=== PATIENT | male | born 1965 | race Caucasian/White ===

== ENCOUNTER 2016-11-19 15:30 | Outpatient (RCR) | payer BC ==
[~2016-11-19 15:30] MED LIST: ASPIRIN E.C. 8181 MG PO; CO Q-1050 MG PO; FISH OIL1000 MG PO; MULTI VITAMINS1 TAB PO; NASACORT AQ N16.5 GM NS; PULMICORT180 MCG/A1 IH; SINGULAIR
== END 2016-12-11 08:25 | disposition home or self-care (01) ==
LOC: WSPT 15:30
DX: M25.561 Pain in right knee (principal)

== ENCOUNTER 2018-06-11 18:43 | Emergency (ER) | payer BC ==
[~2018-06-11] VITALS: Ht 180.3 cm; Wt 100.0 kg
[2018-06-11 18:50] VITALS: TEMP 96.8
[2018-06-11 19:26] LABS: BASO % 0.3 % (0.0-2.0); EOS # 0.1 (0.0-0.7); GRAN # 6.5 (1.4-6.5); GRAN % 61.8 % (42.2-75.2); HEMATOCRIT 41.8 % (42.0-52.0); HEMOGLOBIN 14.6 g/dl (13.5-18.0); LYMPH # 2.8 (1.2-3.4); LYMPH % 27.1 % (20.0-51.0); MEAN CELL VOLUME 90 fl (80.0-100.0); MEAN CORPUSCULAR HEMOGLOBIN 32 pg (27.0-31.0); MEAN CORPUSCULAR HGB CONC 35 g/dl (33.0-37.0); MEAN PLATELET VOLUME 9.2 fl (7.4-10.4); MONO % 9.6 % (1.7-9.3); PLATELET COUNT 259 K/mm3 (130-400); RED BLOOD COUNT 4.63 M/mm3 (4.20-5.60); REDCELL DISTRIBUTION WIDTH-CV 12.4 % (11.5-14.5)
[2018-06-11] MEDS ORDERED: ALBUTEROL S0.4 MG/ML PO (19:33)
[2018-06-11 19:39] LABS: ALBUMIN 4.1 gm/dL (3.5-5.0); BILIRUBIN,TOTAL 0.5 mg/dL (0.0-1.0); CALCIUM 9.3 mg/dL (8.4-10.2); CREATININE, serum 1.27 mg/dL (0.66-1.25); POTASSIUM 3.8 mmol/L (3.4-5.0); TOTAL PROTEIN 7.3 gm/dL (6.4-8.2)
[2018-06-11 20:14] LABS: COLLECTION METHOD CLEAN CATCH
[2018-06-11 20:21] LABS: MUCOUS Present /lpf; PH 5 (5-8); SQUAMOUS EPITHELIAL 0-2 /hpf; URINE APPEARANCE Clear; URINE BACTERIA None Seen /hpf; URINE BILIRUBIN Negative (NEGATIVE); URINE BLOOD 2+ (NEGATIVE); URINE COLOR Yellow; URINE GLUCOSE Negative (NEGATIVE); URINE KETONE Trace (NEGATIVE); URINE LEUKOCYTE ESTERASE Negative (NEGATIVE); URINE NITRATE Negative (NEGATIVE); URINE PROTEIN(semi-quant) Negative (NEGATIVE); URINE RBC >50 /hpf; URINE UROBILINOGEN Negative (NEGATIVE)
[2018-06-11 20:55] VITALS: BP 120/75; PULSE 78
[2018-06-11] MEDS ORDERED: ZOFRAN ODT4 MG PO (21:04)
[2018-06-11] MEDS ORDERED: PERCOCET 325 MG1 TA2 PO (21:04)
[2018-06-11] MEDS ORDERED: FLOMAX 0.40.4 MG/CAP PO (21:04)
== END 2018-06-11 21:17 | disposition home or self-care (01) ==
LOC: COL.ER 18:43
PROVIDERS: Nurse Practitioner
DX: R31.9 Hematuria, unspecified (principal); R10.9 Unspecified abdominal pain; J45.909 Unspecified asthma, uncomplicated; Z79.82 Long term (current) use of aspirin; Z87.442 Personal history of urinary calculi
CPT/HCPCS: J1170; J1885; J2405; J7030

== ENCOUNTER 2018-06-21 07:46 | Day surgery (SDC) | payer BC ==
[~2018-06-21] VITALS: Ht 180.3 cm; Wt 102.3 kg
[2018-06-21] VITALS (7 sets, daily range): BP systolic 129–145; BP diastolic 71–85; PULSE 68–80; TEMP 97.7–99.2
[~2018-06-21 07:46] MED LIST changes: +ALBUTEROL S0.4 MG/ML PO; +FLOMAX 0.40.4 MG/CAP PO; +PERCOCET 325 MG1 TA2 PO; -SINGULAIR; +SINGULAIR 110 MG/TAB PO; +ZOFRAN ODT4 MG PO
[2018-06-21] MEDS ORDERED: COLACE 100100 MG/CAP PO (11:48)
[2018-06-21] MEDS ORDERED: PYRIDIUM 100MG100 MG PO (11:48)
[2018-06-21] MEDS ORDERED: NORCO 325 MG-51 TAB PO (11:48)
== END 2018-06-21 12:18 | disposition home or self-care (01) ==
LOC: SDCO 07:46
DX: N20.2 Calculus of kidney with calculus of ureter (principal); J45.909 Unspecified asthma, uncomplicated; Z79.82 Long term (current) use of aspirin; Z88.2 Allergy status to sulfonamides; Z88.8 Allergy status to other drugs, medicaments and biological substances; Z88.3 Allergy status to other anti-infective agents; Z88.1 Allergy status to other antibiotic agents; Z91.041 Radiographic dye allergy status; Z83.3 Family history of diabetes mellitus; Z82.49 Family history of ischemic heart disease and other diseases of the circulatory system; Z85.46 Personal history of malignant neoplasm of prostate
CPT/HCPCS: C1769; C2617; J0690; J1100; J1170; J2405; J2704; J3010; J7120; Q9967

== ENCOUNTER 2018-12-18 16:54 | Emergency (ER) | payer SELFPAY ==
[~2018-12-18] VITALS: Ht 180.3 cm; Wt 104.5 kg
[~2018-12-18 16:54] MED LIST changes: +COLACE 100100 MG/CAP PO; +NORCO 325 MG-51 TAB PO; +PYRIDIUM 100MG100 MG PO
[2018-12-18 17:02] VITALS: BP 140/72; TEMP 97.6
[2018-12-18] MEDS ORDERED: CEPHALEXIN500 M1 PO (18:17)
[2018-12-18 20:04] VITALS: PULSE 82
== END 2018-12-18 20:06 | disposition home or self-care (01) ==
LOC: COL.ER 16:54
DX: S91.312A Laceration without foreign body, left foot, initial encounter (principal); J45.909 Unspecified asthma, uncomplicated; Z23 Encounter for immunization; Z79.82 Long term (current) use of aspirin; Z87.442 Personal history of urinary calculi; W22.03XA Walked into furniture, initial encounter; Y92.69 Other specified industrial and construction area as the place of occurrence of the external cause; Y99.0 Civilian activity done for income or pay

== ENCOUNTER 2018-12-30 16:04 | Emergency (ER) | payer OTHER ==
[~2018-12-30 16:04] MED LIST changes: +CEPHALEXIN500 M1 PO
[2018-12-30 16:21] VITALS: BP 130/72; PULSE 75; TEMP 97.2
== END 2018-12-30 16:30 | disposition home or self-care (01) ==
LOC: COL.ER 16:04
DX: E10.43 Type 1 diabetes mellitus with diabetic autonomic (poly)neuropathy (principal); K31.84 Gastroparesis; Z79.82 Long term (current) use of aspirin

== ENCOUNTER 2024-01-25 15:42 | Emergency (ER) | payer BC ==
[~2024-01-25] VITALS: Ht 180.3 cm; Wt 97.7 kg
[2024-01-25 16:05] VITALS: TEMP 98.5
[2024-01-25] MEDS ORDERED: Ondansetron 4 MG/2 ML VIAL IV ONE (16:45)
[2024-01-25] MEDS ORDERED: Ketorolac 15 MG/ML VIAL IV ONE (16:45)
[2024-01-25] MEDS ORDERED: LR 1,000 ML IV ONE (16:45)
[2024-01-25] MEDS ORDERED: Morphine 4 MG/ML VIAL IV ONE (16:45)
[2024-01-25 16:52] LABS: COLLECTION METHOD CLEAN CATCH
[2024-01-25 16:57] LABS: BASO % 0.4 % (0.0-2.0); EOS # 0.2 K/mm3 (0.0-0.7); EOS % 2.7 % (0.0-4.0); GRAN # 3.8 K/mm3 (1.4-6.5); GRAN % 47.5 % (42.2-75.2); HEMATOCRIT 41.5 % (42.0-52.0); HEMOGLOBIN 14.2 g/dl (13.5-18.0); LYMPH # 3.2 K/mm3 (1.2-3.4); LYMPH % 40.2 % (20.0-51.0); MEAN CELL VOLUME 90 fl (80.0-100.0); MEAN CORPUSCULAR HEMOGLOBIN 31 pg (27-31); MEAN CORPUSCULAR HGB CONC 34 g/dl (33.0-37.0); MEAN PLATELET VOLUME 9.3 fl (7.4-10.4); MONO # 0.7 K/mm3 (0.1-0.6); PLATELET COUNT 230 K/mm3 (130-400); RED BLOOD COUNT 4.62 M/mm3 (4.20-5.60); REDCELL DISTRIBUTION WIDTH-CV 12.1 % (11.5-14.5)
[2024-01-25 17:03] LABS: URINE APPEARANCE CLEAR (CLEAR/HAZY); URINE BLOOD 2+ (NEGATIVE); URINE COLOR YELLOW (YELLOW); URINE GLUCOSE NEGATIVE (NEGATIVE); URINE KETONE NEGATIVE (NEGATIVE); URINE NITRATE NEGATIVE (NEGATIVE); URINE PROTEIN(semi-quant) NEGATIVE (NEGATIVE); URINE UROBILINOGEN 0.2 E.U/dL (0.2-1.0)
[2024-01-25 17:23] LABS: ALBUMIN 3.7 g/dL (3.5-5.0); BILIRUBIN,TOTAL 0.4 mg/dL (0.2-1.2); C-REACTIVE PROTEIN 0.16 mg/dL (0.00-0.50); CREATININE, serum 1.03 mg/dL (0.72-1.25); POTASSIUM 3.9 mEq/L (3.5-4.5); TOTAL PROTEIN 6.6 g/dl (6.2-8.1)
[2024-01-25] MEDS ORDERED: NORCO 325 MG-51 TAB PO (18:40)
[2024-01-25 18:58] VITALS: BP 131/77; PULSE 80
== END 2024-01-25 18:58 | disposition home or self-care (01) ==
LOC: COL.ER 15:42
PROVIDERS: Family Medicine
DX: N20.2 Calculus of kidney with calculus of ureter (principal); Z98.890 Other specified postprocedural states
CPT/HCPCS: J1885; J2270; J2405; J7120

== ENCOUNTER 2024-05-15 07:01 | Day surgery (SDC) | payer BC ==
[2024-05-15] VITALS (8 sets, daily range): BP systolic 113–138; BP diastolic 69–89; PULSE 70–86; TEMP 98.6
[~2024-05-15] VITALS: Ht 183 cm; Wt 98.0 kg
[~2024-05-15 07:01] MED LIST changes: +THE MEDICINE S200 M2 PO
[2024-05-15] MEDS ORDERED: methylPREDNISolone Sod Succ 125 MG/2 ML VIAL IV ONE (07:30)
[2024-05-15] MEDS ORDERED: 1/2 NS 1,000 ML IV SCH (07:30)
[2024-05-15] MEDS ORDERED: diphenhydrAMINE 50 MG/ML 1 ML VIAL IV ONE (07:30)
[2024-05-15 07:57] LABS: HEMATOCRIT 42.7 % (42.0-52.0); HEMOGLOBIN 15.1 g/dl (13.5-18.0); MEAN CELL VOLUME 90 fl (80.0-100.0); MEAN CORPUSCULAR HEMOGLOBIN 32 pg (27-31); MEAN CORPUSCULAR HGB CONC 35 g/dl (33.0-37.0); MEAN PLATELET VOLUME 9.2 fl (7.4-10.4); PLATELET COUNT 257 K/mm3 (130-400); RED BLOOD COUNT 4.76 M/mm3 (4.20-5.60); REDCELL DISTRIBUTION WIDTH-CV 11.8 % (11.5-14.5)
[2024-05-15 08:03] LABS: INR 1.1 (0.8-3.0); PROTHROMBIN TIME 11.6 SECONDS (9.7-12.8)
[2024-05-15 08:05] LABS: PARTIAL THROMBOPLASTIN TIME 30.1 SECONDS (26.0-37.0)
[2024-05-15 08:14] LABS: CALCIUM 9.6 mg/dL (8.4-10.2); CREATININE, serum 0.97 mg/dL (0.72-1.25); POTASSIUM 3.7 mEq/L (3.5-4.5)
[2024-05-15] MEDS ORDERED: Nitroglycerin 100 MCG/ML (Cath Lab) 10 ML VIAL IA SCH (09:20)
[2024-05-15] MEDS ORDERED: Heparin 1,000 UNITS/ML 10 ML Multi-Dose VIAL IA SCH (09:21)
[2024-05-15] MEDS ORDERED: Verapamil 2.5 MG/ML 2 ML VIAL IA SCH (09:23)
[2024-05-15] MEDS ORDERED: Heparin 1,000 UNITS/ML 10 ML Multi-Dose VIAL IV SCH (09:23)
[2024-05-15] MEDS ORDERED: Iohexol 350 - 100 ML VIAL INCOR ONE (09:49)
[2024-05-15] MEDS ORDERED: Midazolam 2 MG/2 ML VIAL IV SCH (09:50)
[2024-05-15] MEDS ORDERED: fentaNYL 50 MCG/ML 2 ML VIAL IV SCH (09:51)
--- NOTE | 2024-05-15 10:00 | NUR ---
pt to [facility] 12 from [facility] via bed, awake, alert. right arm supported with pillow, band on with no swelling or bleeding. pt sits up in bed, takes water, call light in reach
--- NOTE | 2024-05-15 10:10 | NUR ---
Kendall is transferred back to rm 12 in the express unit. He is awake and alert, pwd with reg and unlabored respirations. TR band to rt wrist, cms intact distal. BS report and handoff of care to [place] KAN.
--- NOTE | 2024-05-15 11:15 | NUR ---
pt sits up in bed, eats lunch, has no c/o
--- NOTE | 2024-05-15 12:00 | NUR ---
pt up to b/r, tolerated well. 2cc of air released in band, repeated in 10 min, till air removed, no signs of swelling or bleeding, bandaid over site and wrapped in coban for support
--- NOTE | 2024-05-15 12:15 | NUR ---
pt up in room, dressed. Reviewed discharge inst. with pt on care of site and activity precautions, also moderate sedation precautions. followup appt was made and no new med changes, pt discharged via w/c to car with daughter at 1300
== END 2024-05-15 13:00 | disposition home or self-care (01) ==
LOC: COL.CAR 07:01
PROVIDERS: Internal Medicine Cardiovascular Disease
DX: I25.10 Atherosclerotic heart disease of native coronary artery without angina pectoris (principal); R94.39 Abnormal result of other cardiovascular function study; R07.9 Chest pain, unspecified; Z14.8 Genetic carrier of other disease
CPT/HCPCS: J1200; J1644; J2250; J2919; J3010; Q9967

== ENCOUNTER 2024-05-17 09:05 | Emergency (ER) | payer BC ==
[~2024-05-17] VITALS: Ht 182.9 cm; Wt 97.7 kg
[2024-05-17 09:10] VITALS: TEMP 98.2
[2024-05-17] MEDS ORDERED: NS 1,000 ML IV ONE (09:30)
[2024-05-17] MEDS ORDERED: methylPREDNISolone Sod Succ 125 MG/2 ML VIAL IV ONE (09:30)
[2024-05-17] MEDS ORDERED: diphenhydrAMINE 50 MG/ML 1 ML VIAL IM ONE (09:30)
[2024-05-17 09:42] LABS: BASO % 0.1 % (0.0-2.0); EOS # 0.6 K/mm3 (0.0-0.7); GRAN # 11.1 K/mm3 (1.4-6.5); GRAN % 78.6 % (42.2-75.2); LYMPH # 1.6 K/mm3 (1.2-3.4); LYMPH % 11.5 % (20.0-51.0); MEAN CELL VOLUME 92 fl (80.0-100.0); MEAN CORPUSCULAR HGB CONC 35 g/dl (33.0-37.0); MEAN PLATELET VOLUME 9.7 fl (7.4-10.4); MONO # 0.8 K/mm3 (0.1-0.6); MONO % 5.4 % (1.7-9.3); PLATELET COUNT 293 K/mm3 (130-400); RED BLOOD COUNT 5.76 M/mm3 (4.20-5.60); REDCELL DISTRIBUTION WIDTH-CV 12.2 % (11.5-14.5)
[2024-05-17 09:43] LABS: HEMOGLOBIN 18.7 g/dl (13.5-18.0); MEAN CORPUSCULAR HEMOGLOBIN 32 pg (27-31)
[2024-05-17] MEDS ORDERED: diphenhydrAMINE 50 MG/ML 1 ML VIAL IV ONE (09:45)
[2024-05-17 09:56] LABS: ALBUMIN 3.7 g/dL (3.5-5.0); BILIRUBIN,TOTAL 0.7 mg/dL (0.2-1.2); CALCIUM 9.4 mg/dL (8.4-10.2); CREATININE, serum 1.13 mg/dL (0.72-1.25); POTASSIUM 4.4 mEq/L (3.5-4.5); TOTAL PROTEIN 6.8 g/dl (6.2-8.1)
[2024-05-17] MEDS ORDERED: PREDNISONE20 MG PO (11:52)
[2024-05-17] MEDS ORDERED: EPIPEN 2-PAK1 MG/ML IM (11:55)
[2024-05-17 12:08] VITALS: BP 118/73; PULSE 88
== END 2024-05-17 12:10 | disposition home or self-care (01) ==
LOC: COL.ER 09:05
PROVIDERS: Family Medicine
DX: T78.40XA Allergy, unspecified, initial encounter (principal)
CPT/HCPCS: J1200; J2919; J7030